=== PATIENT | male | born 1965 | race Caucasian/White ===

== ENCOUNTER 2016-12-01 18:10 | Emergency (ER) | payer OTHER ==
[~2016-12-01] VITALS: Ht 167.6 cm; Wt 104.3 kg
[~2016-12-01 18:10] MED LIST: ATARAX25 MG PO; ATORVASTATIN CA20 M1 PO; D3-5050000 IU PO; FLEXERIL5 MG PO; IBU800 M1 PO; KEFLEX500 MG PO; LOVASTATIN20 MG PO; MOTRIN400 MG PO; MOTRIN800 MG PO; OMEPRAZOLE D/R20 MG PO; OMEPRAZOLE20 MG PO; PRINIVIL10 MG PO; ZESTRIL10 MG PO
[2016-12-01] MEDS ORDERED: NAPROSYN500 MG PO (19:49)
== END 2016-12-01 20:25 | disposition home or self-care (01) ==
LOC: ED 18:10
DX: G89.29 Other chronic pain (principal); M25.561 Pain in right knee; M25.562 Pain in left knee

== ENCOUNTER 2017-01-05 17:19 | Emergency (ER) | payer OTHER ==
[~2017-01-05] VITALS: Ht 167.6 cm; Wt 103.4 kg
[~2017-01-05 17:19] MED LIST changes: +NAPROSYN500 MG PO
[2017-01-05 17:50] LABS: BASO # 0.1 10*3/uL (0.0-0.1); BASO % 0.9 % (0.0-1.0); EOS # 0.4 10*3/uL (0.0-0.4); EOS % 4.5 % (1.0-4.0); HEMATOCRIT 46.1 % (42.0-52.0); HEMOGLOBIN 16.1 g/dl (14.0-18.0); LYMPH # 2.7 10*3/uL (1.3-4.4); LYMPH % 34.8 % (27.0-41.0); MEAN CELL VOLUME 84.7 fl (80.0-94.0); MEAN CORPUSCULAR HGB 29.6 pg (27.0-31.0); MEAN CORPUSCULAR HGB CONC 34.9 g/dl (33.0-37.0); MEAN PLATELET VOLUME 11.3 fl (9.6-12.3); MONO # 0.6 10*3/uL (0.1-1.0); MONO % 8.3 % (3.0-9.0); NEUT % 51.4 % (47.0-73.0); PLATELET COUNT AUTOMATED 262 10*3/uL (130-400); RED BLOOD COUNT 5.44 10*6/uL (4.50-5.90); RED CELL DISTRI WIDTH 11.6 % (0-14.5); WHITE BLOOD COUNT 7.7 10*3/uL (4.8-10.8)
[2017-01-05 18:08] LABS: ALBUMIN 4.1 gm/dl (3.1-4.5); ALKALINE PHOSPHATASE 108 U/L (45-117); BILIRUBIN, TOTAL 0.4 mg/dl (0.2-1.0); BUN 20 mg/dl (7-24); CARBON DIOXIDE 27 mmol/L (21-32); CHLORIDE 108 mmol/L (98-107); EST GLOM FILT AFRICAN AMERICAN > 60 ml/min; GLUCOSE 84 mg/dL (65-99); POTASSIUM 4.2 mmol/L (3.5-5.1); SGOT/AST 25 IU/L (3-35); SGPT/ALT 52 U/L (12-78); SODIUM 140 mmol/L (136-145); TOTAL PROTEIN 7.9 gm/dL (6.4-8.2)
[2017-01-05 18:11] LABS: TROPONIN I < 0.015 ng/ml (<0.045)
== END 2017-01-05 19:10 | disposition home or self-care (01) ==
LOC: ED 17:19
PROVIDERS: Physician Assistant
DX: I15.9 Secondary hypertension, unspecified (principal)

== ENCOUNTER 2017-05-04 18:34 | Emergency (ER) | payer OTHER ==
[~2017-05-04] VITALS: Ht 167.6 cm; Wt 106.6 kg
[2017-05-04] MEDS ORDERED: PROPRANOLOL HCL60 MG PO (18:49)
== END 2017-05-04 21:18 | disposition home or self-care (01) ==
LOC: ED 18:34
DX: S39.012A Strain of muscle, fascia and tendon of lower back, initial encounter (principal); M19.90 Unspecified osteoarthritis, unspecified site; F10.10 Alcohol abuse, uncomplicated; Z79.899 Other long term (current) drug therapy; X50.9XXA Other and unspecified overexertion or strenuous movements or postures, initial encounter; Y93.89 Activity, other specified; Y92.89 Other specified places as the place of occurrence of the external cause; Y99.8 Other external cause status

== ENCOUNTER → 2017-09-23 | Outpatient (CLI) | payer OTHER ==
[~2017-09-23] MED LIST changes: +PROPRANOLOL HCL60 MG PO
== END | disposition home or self-care (01) ==
LOC: RAD 11:56
DX: I10 Essential (primary) hypertension (principal); R06.02 Shortness of breath

== ENCOUNTER 2017-10-05 17:06 | Emergency (ER) | payer OTHER ==
[~2017-10-05] VITALS: Wt 108.9 kg
== END 2017-10-05 17:56 | disposition home or self-care (01) ==
LOC: ED 17:06
DX: S00.01XA Abrasion of scalp, initial encounter (principal); Z23 Encounter for immunization; Z79.899 Other long term (current) drug therapy; W22.8XXA Striking against or struck by other objects, initial encounter; Y93.89 Activity, other specified; Y92.69 Other specified industrial and construction area as the place of occurrence of the external cause; Y99.9 Unspecified external cause status

== ENCOUNTER 2018-05-09 09:48 | Emergency (ER) | payer OTHER ==
[~2018-05-09] VITALS: Ht 167.6 cm; Wt 104.3 kg
== END 2018-05-09 10:19 | disposition home or self-care (01) ==
LOC: ED 09:48
DX: G56.02 Carpal tunnel syndrome, left upper limb (principal); Z79.899 Other long term (current) drug therapy

== ENCOUNTER 2018-06-07 01:36 | Emergency (ER) | payer OTHER ==
[~2018-06-07] VITALS: Ht 167.6 cm; Wt 106.6 kg
[2018-06-07 02:23] LABS: BASO % 0.5 % (0.0-1.0); EOS # 0.3 10*3/uL (0.0-0.4); EOS % 3.7 % (1.0-4.0); HEMOGLOBIN 16.4 g/dl (14.0-18.0); LYMPH # 1.3 10*3/uL (1.3-4.4); LYMPH % 16.5 % (27.0-41.0); MEAN CELL VOLUME 87.6 fl (80.0-94.0); MEAN CORPUSCULAR HGB 29.9 pg (27.0-31.0); MEAN CORPUSCULAR HGB CONC 34.2 g/dl (33.0-37.0); MEAN PLATELET VOLUME 10.9 fl (9.6-12.3); MONO # 0.7 10*3/uL (0.1-1.0); MONO % 8.8 % (3.0-9.0); NEUT # 5.4 10*3/uL (2.3-7.9); NEUT % 70.2 % (47.0-73.0); PLATELET COUNT AUTOMATED 207 10*3/uL (130-400); RED BLOOD COUNT 5.48 10*6/uL (4.50-5.90); RED CELL DISTRI WIDTH 11.8 % (0-14.5); WHITE BLOOD COUNT 7.6 10*3/uL (4.8-10.8)
[2018-06-07 02:41] LABS: ALBUMIN 3.9 gm/dl (3.1-4.5); ALKALINE PHOSPHATASE 116 U/L (45-117); BUN 15 mg/dl (7-24); CHLORIDE 109 mmol/L (98-107); POTASSIUM 3.6 mmol/L (3.5-5.1); SGOT/AST 25 IU/L (3-35); SGPT/ALT 61 U/L (12-78); SODIUM 140 mmol/L (136-145); TOTAL PROTEIN 7.8 gm/dL (6.4-8.2)
[2018-06-07] MEDS ORDERED: LOMOTIL 2.5-0.1 EACH PO (03:22)
[2018-06-07] MEDS ORDERED: ZOFRAN4 MG PO (03:22)
== END 2018-06-07 03:43 | disposition home or self-care (01) ==
LOC: ED 01:36
PROVIDERS: Emergency Medicine Emergency Medical Services
DX: A08.4 Viral intestinal infection, unspecified (principal); I10 Essential (primary) hypertension; M19.90 Unspecified osteoarthritis, unspecified site; Z79.899 Other long term (current) drug therapy

== ENCOUNTER 2018-08-03 21:42 | Emergency (ER) | payer OTHER ==
[~2018-08-03] VITALS: Ht 167.6 cm; Wt 108.9 kg
--- NOTE | ~2018-08-03 | EKG ---
[place], [place] ELECTROCARDIOGRAM REPORT NAME: ROMEL ENAMORADO UNIT #: [id number] ROOM: DOCTOR: EPIPHANY DRAFT REPORT BIRTHDATE: [birth year] [facility] Test Date: 2018-08-03 Test Time: 22:38:07 Pat Name: ROMEL ENAMORADO Department: Room: Gender: M Latexer: Darin Agarwal : 1965 Requested By: VELASQUEZ ALAN Order Number: [id number] Reading MD: Ermias Joy MD Measurements Intervals [place] Rate: 67 P: 34 TX: 169 QRS: -15 QRSD: 99 T: 26 QT: 385 QTc: 407 Interpretive Statements Sinus rhythm Borderline left axis deviation Low voltage, precordial leads Baseline wander in lead(s) V2 Electronically Signed On 08-04-2018 8:48:14 PST by Ermias Joy MD CM:EKGRPT:ELECTROCARDIOGRAM REPORT [id number] VELASQUEZ ALAN MD EPIPHANY DRAFT REPORT VELASQUEZ ALAN MD
[~2018-08-03 21:42] MED LIST changes: +LOMOTIL 2.5-0.1 EACH PO; +ZOFRAN4 MG PO
[2018-08-03 22:39] LABS: BASO # 0.1 10*3/uL (0.0-0.1); EOS # 0.3 10*3/uL (0.0-0.4); EOS % 4.1 % (1.0-4.0); HEMATOCRIT 42.1 % (42.0-52.0); HEMOGLOBIN 14.6 g/dl (14.0-18.0); LYMPH # 2.6 10*3/uL (1.3-4.4); LYMPH % 34.9 % (27.0-41.0); MEAN CELL VOLUME 86.8 fl (80.0-94.0); MEAN CORPUSCULAR HGB 30.1 pg (27.0-31.0); MEAN CORPUSCULAR HGB CONC 34.7 g/dl (33.0-37.0); MEAN PLATELET VOLUME 11.4 fl (9.6-12.3); MONO # 0.7 10*3/uL (0.1-1.0); MONO % 9.7 % (3.0-9.0); NEUT # 3.7 10*3/uL (2.3-7.9); NEUT % 50.2 % (47.0-73.0); PLATELET COUNT AUTOMATED 236 10*3/uL (130-400); RED BLOOD COUNT 4.85 10*6/uL (4.50-5.90); RED CELL DISTRI WIDTH 11.5 % (0-14.5); WHITE BLOOD COUNT 7.3 10*3/uL (4.8-10.8)
[2018-08-03 22:49] LABS: ACT PARTIAL THROMBO TIME 23.1 SECONDS (20.8-31.5); INTERNATIONAL NORM RATIO 0.9 (2.0-3.5)
[2018-08-03 22:57] LABS: ALBUMIN 3.5 gm/dl (3.1-4.5); ALKALINE PHOSPHATASE 106 U/L (45-117); BUN 13 mg/dl (7-24); CHLORIDE 107 mmol/L (98-107); CREATININE 0.94 mg/dL (0.70-1.30); LIPASE 276 U/L (73-393); POTASSIUM 3.9 mmol/L (3.5-5.1); SGOT/AST 37 IU/L (3-35); SGPT/ALT 58 U/L (12-78); SODIUM 139 mmol/L (136-145); TOTAL PROTEIN 7.2 gm/dL (6.4-8.2)
[2018-08-03 22:59] LABS: TROPONIN I < 0.015 ng/ml (<0.045)
[2018-08-04 00:04] LABS: BILIRUBIN NEGATIVE (NEGATIVE); BLOOD NEGATIVE (NEGATIVE); CLARITY CLEAR (CLEAR); COLOR YELLOW (YELLOW); GLUCOSE NEGATIVE (NEGATIVE); KETONE NEGATIVE (NEGATIVE); LEUKO ESTERASE NEGATIVE (NEGATIVE); NITRITE NEGATIVE (NEGATIVE); SPECIFIC GRAVITY 1.015 (1.005-1.030); UROBILINOGEN 0.2 E.U./dl (0.2-1.0)
[2018-08-04 00:12] LABS: RBC 0-2 rbc/hpf (0-2); WBC 0-2 wbc/hpf (0-5)
== END 2018-08-04 00:34 | disposition home or self-care (01) ==
LOC: ED 21:42
PROVIDERS: Emergency Medicine Emergency Medical Services
DX: R42 Dizziness and giddiness (principal); R51 Headache; H93.13 Tinnitus, bilateral; R79.1 Abnormal coagulation profile; I10 Essential (primary) hypertension; M19.90 Unspecified osteoarthritis, unspecified site; Z79.899 Other long term (current) drug therapy

== ENCOUNTER 2019-09-29 11:37 | Emergency (ER) | payer SELFPAY ==
[~2019-09-29] VITALS: Ht 167.6 cm; Wt 113.4 kg
[2019-09-29] MEDS ORDERED: METHOCARBAMOL500 M1 PO (13:42)
== END 2019-09-29 11:56 | disposition home or self-care (01) ==
LOC: ED 11:37
DX: G89.29 Other chronic pain (principal); M54.5 Low back pain; I10 Essential (primary) hypertension; K21.9 Gastro-esophageal reflux disease without esophagitis; Z87.442 Personal history of urinary calculi; Z79.899 Other long term (current) drug therapy

== ENCOUNTER 2020-01-22 17:22 | Emergency (ER) | payer MEDICAID ==
[~2020-01-22] VITALS: Wt 122.5 kg
[~2020-01-22 17:22] MED LIST changes: +METHOCARBAMOL500 M1 PO
[2020-01-22 18:03] LABS: BASO # 0.1 10*3/uL (0.0-0.1); BASO % 0.8 % (0.0-1.0); EOS # 0.3 10*3/uL (0.0-0.4); EOS % 3.8 % (1.0-4.0); HEMATOCRIT 44.3 % (42.0-52.0); LYMPH # 2.8 10*3/uL (1.3-4.4); LYMPH % 34.7 % (27.0-41.0); MEAN CORPUSCULAR HGB 29.4 pg (27.0-31.0); MEAN CORPUSCULAR HGB CONC 34.5 g/dl (33.0-37.0); MEAN PLATELET VOLUME 11.5 fl (9.6-12.3); MONO # 0.7 10*3/uL (0.1-1.0); MONO % 8.8 % (3.0-9.0); NEUT # 4.1 10*3/uL (2.3-7.9); NEUT % 51.8 % (47.0-73.0); PLATELET COUNT AUTOMATED 235 10*3/uL (130-400); RED BLOOD COUNT 5.21 10*6/uL (4.50-5.90); RED CELL DISTRI WIDTH 11.7 % (0-14.5)
[2020-01-22 18:18] LABS: INTERNATIONAL NORM RATIO 0.9 (2.0-3.5)
[2020-01-22 18:22] LABS: ALBUMIN 3.7 gm/dl (3.1-4.5); ALKALINE PHOSPHATASE 91 U/L (45-117); BUN 20 mg/dl (7-24); CHLORIDE 106 mmol/L (98-107); POTASSIUM 3.3 mmol/L (3.5-5.1); SGOT/AST 49 IU/L (3-35); SGPT/ALT 104 U/L (12-78); SODIUM 141 mmol/L (136-145); TOTAL PROTEIN 7.6 gm/dL (6.4-8.2)
[2020-01-22 18:24] LABS: TROPONIN I < 0.015 ng/ml (<0.045)
[2020-01-22] MEDS ORDERED: MECLIZINE HCL25 M2 PO (19:23)
== END 2020-01-22 19:26 | disposition home or self-care (01) ==
LOC: ED 17:22
PROVIDERS: Physician Assistant
DX: R42 Dizziness and giddiness (principal); I10 Essential (primary) hypertension; K21.9 Gastro-esophageal reflux disease without esophagitis

== ENCOUNTER → 2020-07-31 | Outpatient (CLI) | payer BC, OTHER ==
[~2020-07-31] MED LIST changes: +MECLIZINE HCL25 M2 PO
== END | disposition home or self-care (01) ==
LOC: RAD 11:42
PROVIDERS: ATTEND Internal Medicine
DX: M79.89 Other specified soft tissue disorders (principal)

== ENCOUNTER 2021-01-15 13:26 | Emergency (ER) | payer BC, OTHER ==
[~2021-01-15] VITALS: Ht 167.6 cm; Wt 123.4 kg
== END 2021-01-15 14:26 | disposition home or self-care (01) ==
LOC: ED 13:26
DX: Z48.00 Encounter for change or removal of nonsurgical wound dressing (principal)

== ENCOUNTER → 2021-04-20 | Outpatient (CLI) | payer BC, OTHER | END | disposition home or self-care (01) | LOC: RAD 10:23 | PROVIDERS: ATTEND Internal Medicine | DX: R22.31 Localized swelling, mass and lump, right upper limb (principal); M19.041 Primary osteoarthritis, right hand ==

== ENCOUNTER 2022-05-27 17:05 | Emergency (ER) | payer BC, OTHER ==
[~2022-05-27] VITALS: Wt 120.2 kg
== END 2022-05-27 17:35 | disposition home or self-care (01) ==
LOC: ED 17:05
DX: I10 Essential (primary) hypertension (principal); R42 Dizziness and giddiness; F10.90 Alcohol use, unspecified, uncomplicated; Z98.890 Other specified postprocedural states

== ENCOUNTER 2022-12-31 18:21 | Emergency (ER) | payer BC, OTHER ==
[2022-12-31] MEDS ORDERED: PREDNISONE20 M1 PO (18:58)
== END 2022-12-31 19:13 | disposition home or self-care (01) ==
LOC: ED 18:21
DX: M17.0 Bilateral primary osteoarthritis of knee (principal); I10 Essential (primary) hypertension; K21.9 Gastro-esophageal reflux disease without esophagitis; Z87.442 Personal history of urinary calculi; Z98.890 Other specified postprocedural states

== ENCOUNTER 2023-04-18 03:31 | Emergency (ER) | payer BC ==
[~2023-04-18] VITALS: Ht 172.7 cm; Wt 120.2 kg
[~2023-04-18 03:31] MED LIST changes: +PREDNISONE20 M1 PO
[2023-04-18] MEDS ORDERED: CEPHALEXIN500 M1 PO (04:28)
== END 2023-04-18 04:27 | disposition home or self-care (01) ==
LOC: ED 03:31
DX: S69.92XA Unspecified injury of left wrist, hand and finger(s), initial encounter (principal); I10 Essential (primary) hypertension; K21.9 Gastro-esophageal reflux disease without esophagitis; Z87.442 Personal history of urinary calculi; Z98.890 Other specified postprocedural states; X50.1XXA Overexertion from prolonged static or awkward postures, initial encounter; Y93.89 Activity, other specified; Y92.89 Other specified places as the place of occurrence of the external cause; Y99.8 Other external cause status

== ENCOUNTER 2023-06-21 17:49 | Emergency (ER) | payer BC ==
[~2023-06-21] VITALS: Ht 167.6 cm; Wt 117.9 kg
[~2023-06-21 17:49] MED LIST changes: +CEPHALEXIN500 M1 PO
== END 2023-06-21 19:57 | disposition home or self-care (01) ==
LOC: ED 17:49
DX: S46.911A Strain of unspecified muscle, fascia and tendon at shoulder and upper arm level, right arm, initial encounter (principal); S09.90XA Unspecified injury of head, initial encounter; M25.522 Pain in left elbow; I10 Essential (primary) hypertension; K21.9 Gastro-esophageal reflux disease without esophagitis; Z98.890 Other specified postprocedural states; Z87.442 Personal history of urinary calculi; W00.0XXA Fall on same level due to ice and snow, initial encounter; Y93.89 Activity, other specified; Y92.89 Other specified places as the place of occurrence of the external cause; Y99.8 Other external cause status

== ENCOUNTER → 2024-03-01 | Outpatient (CLI) | payer BC | END | disposition home or self-care (01) | LOC: ORTHO 01:47 | PROVIDERS: ATTEND Orthopaedic Surgery | DX: M17.12 Unilateral primary osteoarthritis, left knee (principal); M25.562 Pain in left knee ==

== ENCOUNTER 2024-08-07 12:45 | Emergency (ER) | payer BC ==
[~2024-08-07] VITALS: Ht 167.6 cm; Wt 122.5 kg
[2024-08-07] MEDS ORDERED: Cyclobenzaprine Hydrochlorid 10 MG TAB PO ONE (14:20)
[2024-08-07] MEDS ORDERED: Ketorolac Tromethamine 60 MG/2 ML VIAL IM ONE (14:20)
[2024-08-07] MEDS ORDERED: Dexamethasone Sodium Phospha 20 MG/5 ML VIAL IM ONE (14:20)
[2024-08-07] MEDS ORDERED: LIDOCAINE1 EACH T (15:17)
[2024-08-07] MEDS ORDERED: MEDROL DOSEPAK4 MG PO (15:17)
[2024-08-07] MEDS ORDERED: MELOXICAM15 MG PO (15:17)
[2024-08-07] MEDS ORDERED: CYCLOBENZAPRINE5 M3 PO (15:17)
== END 2024-08-07 15:27 | disposition home or self-care (01) ==
LOC: ED 12:45
DX: M62.830 Muscle spasm of back (principal); I10 Essential (primary) hypertension; K21.9 Gastro-esophageal reflux disease without esophagitis; Z87.442 Personal history of urinary calculi; Z91.041 Radiographic dye allergy status; Z98.890 Other specified postprocedural states